=== PATIENT | male | born 1960 | race Caucasian/White ===

== ENCOUNTER 2022-02-10 16:28 | Outpatient (CLI) | payer BC, SELFPAY ==
[2022-02-10 16:40] LABS: Mucous, Urine 0 SEEN /hpf (<or=2+); Red Blood Cells-Urine 0 SEEN /hpf (0-5); Squamous Epithelial Cells - UA 0 SEEN /hpf (0-5)
[2022-02-10 16:54] LABS: Color, Urine Amber (Yellow); Glucose, Dipstick Normal (Normal); Ketone-Dipstick 5 mg/dl (Negative); Leukocyte Esterase-Dipstick 25 /ul (Negative); Nitrite-Dipstick Negative (Negative); Occult Blood-Urine 10 /ul (Negative); Protein-Dipstick 15 mg/dl (Negative); Urine Bilirubin Dipstick Negative (Negative); Urine Clarity Clear (Clear); Urine Urobilinogen 1 mg/dl (Normal)
[2022-02-10 17:11] LABS: Bacteria 1+ /hpf (None Seen); Calcium Oxalate Crystals Ur 1+ /hpf (<or=2+); Hyaline Cast 10-25 SEEN /lpf (0-5); White Blood Cells 0-5 SEEN /hpf (0-5)
== END 2022-02-10 23:59 | disposition home or self-care (01) ==
LOC: LABSPEC 16:34
PROVIDERS: Visit Provider Urology
DX: R31.21 Asymptomatic microscopic hematuria (principal)
CPT/HCPCS: 81001